=== PATIENT | female | born 1945 | race Caucasian/White ===

== ENCOUNTER 2021-08-26 00:58 | Inpatient (IN) | payer MEDICARE ==
[2021-08-26] VITALS (16 sets, daily range): BP systolic 113–149; BP diastolic 49–78
[~2021-08-26] VITALS: Ht 162.6 cm; Wt 89.4 kg
[2021-08-26 01:42] LABS: Basophils # (auto) 0.1 10 ^3/uL (0-0.2); Eosinophils # (auto) 0.1 10 ^3/uL (0-0.8); White Blood Cell 5.5 10^3/uL (4.4-10.8)
[2021-08-26 01:44] LABS: Basophils % (auto) 1.2 % (0.0-2.0); Eosinophils % (auto) 2.6 % (0.0-7.0); Hematocrit 39.3 % (36.0-46.0); Hemoglobin 12.9 g/dL (12.2-16.2); Lymphocytes # (auto) 2.5 10 ^3/uL (0.4-5.4); Lymphocytes % (auto) 44.9 % (10.0-50.0); Mean Corpuscular Hemoglobin 26.1 pg (28.0-32.0); Mean Corpuscular Hgb Conc. 32.8 g/dL (32.0-36.0); Mean Corpuscular Volume 79.4 fL (80.0-100.0); Monocytes # (auto) 0.5 10 ^3/uL (0-1.3); Monocytes % (auto) 9.2 % (0.0-12.0); Neutrophils # (auto) 2.3 10 ^3/uL (1.6-8.6); Neutrophils % (auto) 42.1 % (37.0-80.0); Nucleated Red Blood Cells % 0.1 %; Red Blood Cells 4.95 10^6/uL (4.0-5.20); Red Cell Distribution Width 14.1 % (11.8-14.3)
[2021-08-26 02:00] LABS: Albumin 3.3 g/dL (3.4-5.0); BUN/Creatinine Ratio 23.1; Calcium 8.9 mg/dL (8.5-10.1); Potassium 3.9 mmol/L (3.5-5.1)
[2021-08-26 02:04] LABS: Bilirubin, Total 0.4 mg/dL (0.2-1.0); Total Protein 6.7 g/dL (6.4-8.2)
[2021-08-26] MEDS ORDERED: HYDROcodone-ACET 5/325MG TAB PO PRN (03:30)
[2021-08-26] MEDS ORDERED: ONDANSETRON HCL 4 MG/2 ML VIAL IV PRN (03:30)
[2021-08-26] MEDS ORDERED: DOCUSATE SOD 100 MG CAP PO PRN (03:30)
[2021-08-26] MEDS ORDERED: MORPHINE SULFATE 4 MG/ML SYR/VIAL IV PRN (03:30)
[2021-08-26] MEDS: SODIUM CHLORIDE 0.9% 1,000 ML IV SCH ×2 (03:33→04:41)
[2021-08-26] MEDS: ACETAMINOPHEN 325 MG TAB PO PRN (04:36)
[2021-08-26 05:01] LABS: Cholesterol 127 mg/dL (< 200)
[2021-08-26 05:04] LABS: HDL Cholesterol 52 mg/dL (40-59); LDL Cholesterol 65 mg/dL (< 100); Triglycerides 85 mg/dL (< 150)
[2021-08-26] MEDS ORDERED: ENOXAPARIN SOD 40 MG/0.4 ML SYRINGE SC SCH (10:00)
[2021-08-26] MEDS ORDERED: GLUCAGON HYDROCHLORIDE (RDNA) 1 MG VIAL IV ONE (10:45)
[2021-08-26 14:38] LABS: Free T3 2.61 pg/mL (2.3-4.2)
[2021-08-27] VITALS (12 sets, daily range): BP systolic 109–146; BP diastolic 54–80
[2021-08-27] MEDS: ACETAMINOPHEN 325 MG TAB PO PRN (03:05)
[2021-08-27 04:52] LABS: Basophils # (auto) 0.1 10 ^3/uL (0-0.2); Eosinophils # (auto) 0.1 10 ^3/uL (0-0.8); Lymphocytes # (auto) 1.6 10 ^3/uL (0.4-5.4); Monocytes # (auto) 0.6 10 ^3/uL (0-1.3); Monocytes % (auto) 10.3 % (0.0-12.0); Nucleated Red Blood Cells % 0.1 %; White Blood Cell 5.6 10^3/uL (4.4-10.8)
[2021-08-27 04:58] LABS: Basophils % (auto) 1.1 % (0.0-2.0); Eosinophils % (auto) 2.6 % (0.0-7.0); Hematocrit 37.6 % (36.0-46.0); Hemoglobin 12.6 g/dL (12.2-16.2); Mean Corpuscular Hemoglobin 26.6 pg (28.0-32.0); Mean Corpuscular Hgb Conc. 33.6 g/dL (32.0-36.0); Mean Corpuscular Volume 79.3 fL (80.0-100.0); Neutrophils # (auto) 3.2 10 ^3/uL (1.6-8.6); Red Blood Cells 4.74 10^6/uL (4.0-5.20); Red Cell Distribution Width 13.9 % (11.8-14.3)
[2021-08-27 05:09] LABS: Potassium 4.2 mmol/L (3.5-5.1)
[2021-08-27 05:13] LABS: BUN/Creatinine Ratio 14.9; Calcium 8.5 mg/dL (8.5-10.1)
[2021-08-27 05:15] LABS: Bilirubin, Total 0.5 mg/dL (0.2-1.0); Total Protein 6.2 g/dL (6.4-8.2)
[2021-08-27] MEDS ORDERED: HCTZ 25 MG TAB PO SCH (10:00)
[2021-08-27] MEDS ORDERED: HYDR25TA5 PO (12:07)
== END 2021-08-27 18:05 | disposition home or self-care (01) | DRG 309 ==
LOC: EDBD 00:58 → ER 01:24 → TELE 03:24 → ICU WEST 06:05
PROVIDERS: ADMIT Internal Medicine; ATTEND Internal Medicine Pulmonary Disease
DX: I49.9 Cardiac arrhythmia, unspecified (principal); I44.2 Atrioventricular block, complete; E66.9 Obesity, unspecified; E78.5 Hyperlipidemia, unspecified; I10 Essential (primary) hypertension; E03.8 Other specified hypothyroidism; K21.9 Gastro-esophageal reflux disease without esophagitis; S82.832A Other fracture of upper and lower end of left fibula, initial encounter for closed fracture; W18.39XA Other fall on same level, initial encounter; Z68.33 Body mass index [BMI] 33.0-33.9, adult; Y93.89 Activity, other specified; Z82.3 Family history of stroke; Y92.89 Other specified places as the place of occurrence of the external cause; Y99.8 Other external cause status
CPT/HCPCS: 36415; 71045; 73610; 80053; 80061; 82962; 83735; 83880; 84439; 84443; 84481; 84484; 85025; 87081; 93005; 93306; 96360; 99291; G0378